=== PATIENT | female | born 1980 | race African-American/Black ===

== ENCOUNTER → 2016-11-11 | Outpatient (CLI) | payer OTHER, MEDICAID ==
[~2016-11-11] MED LIST: METR250 PO; ONDA4TAB7 PO; OXYC5 PO
[2016-11-11 12:12] LABS: AUTOMATED NEUTROPHIL # 2.5 TH/MM3 (1.8-7.7); BASOPHIL % 0.6 % (0.0-2.0); EOSINOPHIL % 0.2 % (0.0-4.0); HEMATOCRIT 35.3 % (35.0-46.0); HEMO FLAGS DIFF FINAL; LYMPH % 38.8 % (9.0-44.0); LYMPHOCYTE # 1.8 TH/MM3 (1.0-4.8); MEAN CELL VOLUME 88.6 FL (80.0-100.0); MEAN CORPUSCULAR HEMOGLOBIN 30.4 PG (27.0-34.0); MEAN CORPUSCULAR HGB CONC 34.3 % (32.0-36.0); NEUT % 52.4 % (16.0-70.0); PLATELET COUNT 160 TH/MM3 (150-450); RED BLOOD COUNT 3.99 MIL/MM3 (4.00-5.30); RED CELL DISTRIBUTION WIDTH 14.2 % (11.6-17.2); WHITE BLOOD COUNT 4.7 TH/MM3 (4.0-11.0)
[2016-11-11 12:46] LABS: ALKALINE PHOSPHATASE 86 U/L (45-117); ALT (GPT) 51 U/L (10-53); ANION GAP 8 MEQ/L (5-15); AST (GOT) 40 U/L (15-37); BLOOD UREA NITROGEN 17 MG/DL (7-18); CHLORIDE 102 MEQ/L (98-107); FERRITIN 16 NG/ML (8-252); GLOMERULAR FILTRATION RATE 76 ML/MIN (>89); GLUCOSE,FASTING 78 MG/DL (74-99); POTASSIUM 4.4 MEQ/L (3.5-5.1); SODIUM (NA) 137 MEQ/L (136-145); TOTAL BILIRUBIN ADULT 0.3 MG/DL (0.2-1.0)
== END ==
LOC: CLAB 11:29
PROVIDERS: ATTEND Internal Medicine Hematology & Oncology
DX: D50.9 Iron deficiency anemia, unspecified (principal); R53.81 Other malaise; R53.83 Other fatigue; Z98.84 Bariatric surgery status
CPT/HCPCS: 36415; 80053; 82728; 85025

== ENCOUNTER → 2016-11-19 | Outpatient (CLI) | payer OTHER, MEDICAID ==
[2016-11-19 10:23] LABS: FERRITIN 889 NG/ML (8-252); HDL CHOLESTEROL 80.3 MG/DL (40.0-60.0); LDL CHOLESTEROL 50 MG/DL (0-99); MAGNESIUM 2.2 MG/DL (1.5-2.5); TRANSFERRIN IRON PROFILE 299 MG/DL (200-360)
== END ==
LOC: CLAB 09:12
PROVIDERS: ATTEND Nurse Practitioner
DX: E78.89 Other lipoprotein metabolism disorders (principal); I27.2 Other secondary pulmonary hypertension; E55.9 Vitamin D deficiency, unspecified; N25.81 Secondary hyperparathyroidism of renal origin; Z98.84 Bariatric surgery status; Z86.39 Personal history of other endocrine, nutritional and metabolic disease
CPT/HCPCS: 36415; 80061; 82306; 82728; 83540; 83550; 83735; 83970; 84100; 84443; 84590

== ENCOUNTER → 2017-04-10 | Outpatient (CLI) | payer OTHER, MEDICAID ==
[2017-04-10 09:38] LABS: AUTOMATED NEUTROPHIL # 2.2 TH/MM3 (1.8-7.7); BASOPHIL % 0.5 % (0.0-2.0); EOSINOPHIL % 0.4 % (0.0-4.0); HEMATOCRIT 37.6 % (35.0-46.0); HEMO FLAGS DIFF FINAL; LYMPH % 39.9 % (9.0-44.0); LYMPHOCYTE # 1.7 TH/MM3 (1.0-4.8); MEAN CELL VOLUME 91.5 FL (80.0-100.0); MEAN CORPUSCULAR HEMOGLOBIN 30.2 PG (27.0-34.0); MONO % 7.1 % (0.0-8.0); NEUT % 52.1 % (16.0-70.0); PLATELET COUNT 140 TH/MM3 (150-450); RED BLOOD COUNT 4.11 MIL/MM3 (4.00-5.30); RED CELL DISTRIBUTION WIDTH 13.7 % (11.6-17.2); WHITE BLOOD COUNT 4.3 TH/MM3 (4.0-11.0)
[2017-04-10 09:55] LABS: MAGNESIUM 2.1 MG/DL (1.5-2.5)
[2017-04-10 10:23] LABS: FERRITIN 60 NG/ML (8-252); HDL CHOLESTEROL 75.8 MG/DL (40.0-60.0); LDL CHOLESTEROL 67 MG/DL (0-99); TRANSFERRIN IRON PROFILE 302 MG/DL (200-360)
[2017-04-14 23:51] LABS: THYROGLOB ABS LESS THAN 1 IU/mL (< OR = 1)
== END ==
LOC: CLAB 09:03
PROVIDERS: ATTEND Family Medicine
DX: Z00.00 Encounter for general adult medical examination without abnormal findings (principal); D64.9 Anemia, unspecified; E53.8 Deficiency of other specified B group vitamins; R63.5 Abnormal weight gain
CPT/HCPCS: 36415; 80061; 82306; 82607; 82728; 82746; 83540; 83550; 83735; 83970; 84100; 84443; 84590; 85025; 86376; 86800

== ENCOUNTER 2017-05-20 07:38 | Emergency (ER) | payer OTHER, MEDICAID ==
[~2017-05-20] VITALS: Ht 149.9 cm; Wt 82.5 kg
[2017-05-20 07:39] VITALS: BP 120/86; PULSE 78; RESP 16; TEMP 98.4; O2SAT 100
--- NOTE | 2017-05-20 07:59 | PD ---
HPI Chief Complaint: Allergic/Adverse Reaction Time Seen by Provider: 07:48 Travel History International Travel<30 days: No Contact w/Intl Traveler<30days: No Traveled to known affect area: No History of Present Illness HPI 37-year-old female with no significant past medical history presents for evaluation of bilateral periorbital swelling, swelling in the feet and hands. She reports that symptoms started at midnight 2 days ago. She took Benadryl 4 times yesterday and the swelling in her hands and feet feel improved however she continues to have bilateral periorbital edema. The area is painful, mild, aching, worse with palpation. She reports that she had some itching in her throat yesterday but that resolved. She denies any difficulty swallowing, shortness of breath, swelling of the lips or the tongue, rash. She does note that she ate seafood, potatoes, corn, aches, for dinner the evening that symptoms started however she has had seafood while times in the past with no adverse reaction. She denies any unusual foods, new medications or creams or lotions or detergents, new medications, recent travel. She has no other complaints at this time. PFSH Past Medical History Hx Anticoagulant Therapy: No Autoimmune Disease: No Anxiety: No Depression: No Cancer: No Cardiovascular Problems: Yes (" palpitations" ) Chemotherapy: No Cerebrovascular Accident: No Diabetes: No Diminished Hearing: No Endocrine: No Genitourinary: No Headaches: Yes Immune Disorder: No Musculoskeletal: No Neurologic: Yes (migraines as a teenager) Psychiatric: No Reproductive: No Respiratory: No Immunizations Current: No Migraines: Yes Radiation Therapy: No Ulcer: Yes ?: Not : 4 Para: 4 Tubal Ligation: Yes Past Surgical History Abdominal Surgery: Yes (GASTRIC BYPASS 03/2012) Section: Yes Cholecystectomy: Yes Gynecologic Surgery: Yes (C-SECTIONS) Hysterectomy: No Pacemaker: No Other Surgery: Yes (ulcer surg and "rule and wire") Social History Alcohol Use: Yes (socially) Tobacco Use: No Substance Use: No Allergies-Medications (Allergen,Severity, Reaction): Coded Allergies: No Known Allergies (Verified Adverse Reaction, Unknown, 05/20/17) Reported Meds & Prescriptions Reported Meds & Active Scripts Active Ranitidine (Ranitidine HCl) 150 Mg Tab 150 Mg PO DAILY Prednisone 20 Mg Tab 20 Mg PO BID 5 Days Reported Multiple Vitamin 1 Tab 1 Tab PO DAILY Review of Systems Except as stated in HPI: all other systems reviewed are Neg Physical Exam Narrative GENERAL: Well-developed well-nourished female in no acute distress SKIN: Warm and dry. No hives HEAD: Atraumatic. Normocephalic. EYES: Pupils equal and round. No scleral icterus. No injection or drainage. ENT: No nasal bleeding or discharge. Mucous membranes pink and moist. Bilateral periorbital edema is noted. There is no erythema or induration of the skin. There is no swelling of the lips, tongue, uvula. Voice is not hoarse or muffled. No stridor or drooling. NECK: Trachea midline. No JVD. CARDIOVASCULAR: Regular rate and rhythm. No murmur appreciated. RESPIRATORY: No accessory muscle use. Clear to auscultation. Breath sounds equal bilaterally. GASTROINTESTINAL: Abdomen soft, non-tender, nondistended. Hepatic and splenic margins not palpable. MUSCULOSKELETAL: No obvious deformities. No clubbing. No cyanosis. No edema. NEUROLOGICAL: Awake and alert. No obvious cranial nerve deficits. Motor grossly within normal limits. Normal speech. PSYCHIATRIC: Appropriate mood and affect; insight and judgment normal. Data Data Last Documented VS Vital Signs Date Time Temp Pulse Resp B/P (MAP) Pulse Ox O2 Delivery O2 Flow Rate FiO2 05/20/17 08:32 71 19 132/87 (102) 100 Room Air 05/20/17 07:39 98.4 Orders Orders Basic Metabolic Panel (Bmp) (05/20/17 07:55) Complete Blood Count With Diff (05/20/17 07:55) Ecg Monitoring (05/20/17 07:55) Iv Access Insert/Monitor (05/20/17 07:55) Oximetry (05/20/17 07:55) Diphenhydramine Inj (Benadryl Inj) (05/20/17 08:00) Methylprednisolone So Succ Inj (Solumedr (05/20/17 08:00) Famotidine Inj (Pepcid Inj) (05/20/17 08:00) Urinalysis - C+S If Indicated (05/20/17 07:55) Ed Urine Pregnancytest Poc (05/20/17 07:55) Ed Discharge Order (05/20/17 09:10) Labs Laboratory Tests Test 05/20/17 08:20 White Blood Count 3.4 TH/MM3 Red Blood Count 4.29 MIL/MM3 Hemoglobin 13.3 GM/DL Hematocrit 39.7 % Mean Corpuscular Volume 92.4 FL Mean Corpuscular Hemoglobin 31.0 PG Mean Corpuscular Hemoglobin Concent 33.5 % Red Cell Distribution Width 14.4 % Platelet Count 167 TH/MM3 Mean Platelet Volume 10.7 FL Neutrophils (%) (Auto) 44.3 % Lymphocytes (%) (Auto) 46.7 % Monocytes (%) (Auto) 6.7 % Eosinophils (%) (Auto) 1.6 % Basophils (%) (Auto) 0.7 % Neutrophils # (Auto) 1.5 TH/MM3 Lymphocytes # (Auto) 1.6 TH/MM3 Monocytes # (Auto) 0.2 TH/MM3 Eosinophils # (Auto) 0.1 TH/MM3 Basophils # (Auto) 0.0 TH/MM3 CBC Comment DIFF FINAL Differential Comment Urine Color YELLOW Urine Turbidity HAZY Urine pH 6.5 Urine Specific [place] 1.028 Urine Protein TRACE mg/dL Urine Glucose (UA) NEG mg/dL Urine Ketones NEG mg/dL Urine Occult Blood NEG Urine Nitrite NEG Urine Bilirubin NEG Urine Urobilinogen 2.0 MG/DL Urine Leukocyte Esterase NEG Urine RBC LESS THAN 1 /hpf Urine WBC 2 /hpf Urine Squamous Epithelial Cells 4 /hpf Urine Mucus FEW /lpf Microscopic Urinalysis Comment CULT NOT INDICATED Blood Urea Nitrogen 11 MG/DL Creatinine 0.80 MG/DL Random Glucose 77 MG/DL Calcium Level 7.9 MG/DL Sodium Level 139 MEQ/L Potassium Level 4.6 MEQ/L Chloride Level 106 MEQ/L Carbon Dioxide Level 26.8 MEQ/L Anion Gap 6 MEQ/L Estimat Glomerular Filtration Rate 99 ML/MIN [facility] Medical Decision Making Medical Screen Exam Complete: Yes Emergency Medical Condition: Yes Medical Record Reviewed: Yes Differential Diagnosis Angioedema, acute allergic reaction, renal failure, nephrotic syndrome, preeclampsia Narrative Course 37-year-old female who developed bilateral periorbital edema as well as swelling in the hands and feet at midnight 2 days ago, several hours after eating seafood. She has had seafood multiple times in the past with no adverse reaction. She took Benadryl yesterday and the swelling in her hands and feet of resolved but she continues have periorbital edema. Plans for urinalysis to evaluate for any proteinuria, we will assess her renal function. Most likely the patient is having an allergic reaction and this will be treated with H1/H2 antihistamines and IV Solu-Medrol. Upon recheck the patient feels improved. Her lab work has been reviewed. The patient will be discharged with a 5 day course of prednisone and ranitidine. She is encouraged to continue using Benadryl. She understands to return for any new or worsening symptoms. She is stable for discharge. Diagnosis Primary Impression: Angioedema Qualified Codes: T78.3XXA - Angioneurotic edema, initial encounter Additional Instructions: Medication as prescribed. Continue Benadryl every 6 hours per dosing instructions on the bottle. Follow-up with primary care physician and return for any acutely new or worsening symptoms. Med/Other Pt SpecificInfo: Prescription(s) given Scripts Ranitidine (Ranitidine) 150 Mg Tab 150 MG PO DAILY for Allergic Reaction, #5 TAB 0 Refills Prov: Mohsen Sheffield MD 05/20/17 Prednisone (Prednisone) 20 Mg Tab 20 MG PO BID for 5 Days, #10 TAB 0 Refills Prov: Mohsen Sheffield MD 05/20/17 Disposition: 01 DISCHARGE HOME Condition: Stable Kulwant Mcclendon May 20, 2017 07:59
[2017-05-20] MEDS ORDERED: MULTTAB67 PO (08:00)
[2017-05-20] MEDS ORDERED: methylPREDNISolone SOD SUCC 125 MG/2 ML VIAL IV PUSH ONE (08:00)
[2017-05-20] MEDS ORDERED: diphenhydrAMINE HCL 50 MG/ML VIAL IVP ONE (08:00)
[2017-05-20] MEDS ORDERED: FAMOTIDINE 20 MG/2 ML VIAL IV PUSH ONE (08:00)
[2017-05-20 08:32] VITALS: BP 132/87; PULSE 71; RESP 19; O2SAT 100
[2017-05-20 08:36] LABS: AUTOMATED NEUTROPHIL # 1.5 TH/MM3 (1.8-7.7); BASOPHIL % 0.7 % (0.0-2.0); EOSINOPHIL # 0.1 TH/MM3 (0-0.4); EOSINOPHIL % 1.6 % (0.0-4.0); HEMATOCRIT 39.7 % (35.0-46.0); HEMO FLAGS DIFF FINAL; LYMPH % 46.7 % (9.0-44.0); LYMPHOCYTE # 1.6 TH/MM3 (1.0-4.8); MEAN CELL VOLUME 92.4 FL (80.0-100.0); MEAN CORPUSCULAR HGB CONC 33.5 % (32.0-36.0); MONO % 6.7 % (0.0-8.0); NEUT % 44.3 % (16.0-70.0); PLATELET COUNT 167 TH/MM3 (150-450); RED BLOOD COUNT 4.29 MIL/MM3 (4.00-5.30); RED CELL DISTRIBUTION WIDTH 14.4 % (11.6-17.2); WHITE BLOOD COUNT 3.4 TH/MM3 (4.0-11.0)
[2017-05-20 08:38] LABS: BLOOD, URINE NEG (NEG); COMMENT (UR) CULT NOT INDICATED; CULTURE IF INDICATED CULT NOT INDICATED; GLUCOSE,URINE NEG (NEG); KETONE, URINE NEG (NEG); MUCUS URINE FEW /lpf (OCC); NITRITE,URINE NEG (NEG); PH, URINE 6.5 (5.0-8.5); SQUAMOUS EPITHELIAL CELL URINE 4 /hpf (0-5); URINE COLOR YELLOW (YELLW/STRAW)
[2017-05-20] MEDS ORDERED: RANI150T PO (08:48)
[2017-05-20] MEDS ORDERED: PRED20 PO (08:48)
[2017-05-20 09:02] LABS: BICARBONATE 26.8 MEQ/L (21.0-32.0); POTASSIUM 4.6 MEQ/L (3.5-5.1)
== END 2017-05-20 09:27 | disposition home or self-care (01) ==
LOC: NEPD 07:38
DX: T78.3XXA Angioneurotic edema, initial encounter (principal); M79.89 Other specified soft tissue disorders; L29.9 Pruritus, unspecified; Z79.899 Other long term (current) drug therapy
CPT/HCPCS: 80048; 81001; 84703; 85025; 96374; 96375; 99284; J1200; J2930

== ENCOUNTER 2017-06-18 11:05 | Emergency (ER) | payer OTHER, MEDICAID ==
[~2017-06-18] VITALS: Ht 149.9 cm; Wt 85.0 kg
[~2017-06-18 11:05] MED LIST changes: -METR250 PO; +MULTTAB67 PO; -ONDA4TAB7 PO; -OXYC5 PO; +PRED20 PO; +RANI150T PO
[2017-06-18 11:07] VITALS: BP 144/91; PULSE 86; RESP 14; TEMP 98.5; O2SAT 100
[2017-06-18] MEDS ORDERED: PRED20 PO (11:43)
--- NOTE | 2017-06-18 11:53 | PD ---
HPI . Bilateral eyelid swelling Chief Complaint: Facial Pain or Swelling Time Seen by Provider: 11:17 Travel History International Travel<30 days: No Contact w/Intl Traveler<30days: No Traveled to known affect area: No History of Present Illness HPI 37 year old female presents to the emergency department for evaluation of bilateral eyelid swelling that started this morning. The right eyelid is slightly more swollen than the left. Patient states earlier this month she had an episode where she had eaten seafood and her throat closed up and her eyelid swelled. Patient states she was treated for that allergic reaction and has not had a problem since. Patient states she did not eat seafood yesterday or today. Patient denies any throat swelling, difficulty breathing, chest pain, shortness of breath, cough, fever, chills, malaise. Patient states it is only her eyelids are swollen this time. Patient has a blurred vision or visual disturbances. PFSH Past Medical History Hx Anticoagulant Therapy: No Anemia: Yes Autoimmune Disease: No Blood Disorders: Yes (anemia - receives blood at oncology center occoasionally ) Anxiety: No Depression: No Cancer: No Cardiovascular Problems: Yes (" palpitations" ) Chemotherapy: No Cerebrovascular Accident: No Diabetes: No Diminished Hearing: No Endocrine: No Gastrointestinal Disorders: Yes (hx bleeding ulcers, zulifqar to do endo at of month) Genitourinary: No Headaches: Yes Immune Disorder: No Implanted Vascular Access Dvce: No Musculoskeletal: No Neurologic: Yes (migraines as a teenager) Psychiatric: No Reproductive: No Respiratory: No Immunizations Current: No Migraines: Yes Radiation Therapy: No Ulcer: Yes ?: Not : 4 Para: 4 Tubal Ligation: Yes Past Surgical History Abdominal Surgery: Yes (GASTRIC BYPASS 03/2012) Section: Yes Cholecystectomy: Yes Gynecologic Surgery: Yes (C-SECTIONS) Hysterectomy: No Pacemaker: No Other Surgery: Yes (ulcer surg and "rule and wire") Social History Alcohol Use: Yes (socially) Tobacco Use: No Substance Use: No Allergies-Medications (Allergen,Severity, Reaction): Coded Allergies: No Known Allergies (Verified Adverse Reaction, Unknown, 05/20/17) Reported Meds & Prescriptions Reported Meds & Active Scripts Active Prednisone 20 Mg Tab 20 Mg PO DAILY 3 Days Ranitidine (Ranitidine HCl) 150 Mg Tab 150 Mg PO DAILY Prednisone 20 Mg Tab 20 Mg PO BID 5 Days Reported Multiple Vitamin 1 Tab 1 Tab PO DAILY Review of Systems Except as stated in HPI: all other systems reviewed are Neg Physical Exam Narrative GENERAL: Well-nourished, well-developed 37-year-old female patient in no acute distress. Nontoxic appearing. SKIN: Focused skin assessment warm/dry. HEAD: Normocephalic. Atraumatic. EYES: Mild to Moderate edema noted to bilateral eyelids with the right slightly more swollen than the left. No injection, purulent drainage or signs of infection noted. No scleral icterus. NECK: Supple, trachea midline. No JVD or lymphadenopathy. CARDIOVASCULAR: Regular rate and rhythm without murmurs, gallops, or rubs. RESPIRATORY: Breath sounds equal bilaterally. No accessory muscle use. GASTROINTESTINAL: Abdomen soft, non-tender, nondistended. MUSCULOSKELETAL: No cyanosis, or edema. Data Data Last Documented VS Vital Signs Date Time Temp Pulse Resp B/P (MAP) Pulse Ox O2 Delivery O2 Flow Rate FiO2 06/18/17 12:05 06/18/17 11:07 98.5 86 14 100 Orders Orders Ed Discharge Order (06/18/17 11:55) MDM Medical Decision Making Medical Screen Exam Complete: Yes Emergency Medical Condition: Yes Differential Diagnosis Different diagnosis including but not limited to allergic reaction, stye, edema , chalazion Narrative Course 37-year-old female presents to emergency room for evaluation of eyelid swelling. Patient advised to use warm moist compresses to help reduce the swelling and given a prescription for prednisone. Patient discharged home with instructions to return to the emergency Department with any worsening condition , trouble breathing, chest pain or signs or symptoms of allergic reaction. Patient understands reasons to return to the emergency department. Patient stable for discharge at this time and discharged home. Diagnosis Primary Impression: Swelling of eyelid Qualified Codes: H02.849 - Edema of unspecified eye, unspecified eyelid Referrals: Primary Care Physician Additional Instructions: Please return to emergency department if your symptoms return or worsen. Follow up with your primary care provider. Take medications as prescribed. Use warm moist compresses to her eyelids to help reduce swelling. Med/Other Pt SpecificInfo: Prescription(s) given Scripts Prednisone (Prednisone) 20 Mg Tab 20 MG PO DAILY for 3 Days, #3 TAB 0 Refills Prov: Holley Sierra 06/18/17 Disposition: 01 DISCHARGE HOME Condition: Stable MarielaHolley Adeline SYED Jun 18, 2017 11:53
== END 2017-06-18 12:05 | disposition home or self-care (01) ==
LOC: NEPK 11:05
DX: H02.849 Edema of unspecified eye, unspecified eyelid (principal); Z86.2 Personal history of diseases of the blood and blood-forming organs and certain disorders involving the immune mechanism; Z86.79 Personal history of other diseases of the circulatory system; Z87.19 Personal history of other diseases of the digestive system; Z86.69 Personal history of other diseases of the nervous system and sense organs
CPT/HCPCS: 99283

== ENCOUNTER 2017-07-22 08:13 | Emergency (ER) | payer OTHER, MEDICAID ==
[~2017-07-22] VITALS: Ht 152.4 cm; Wt 88.5 kg
[2017-07-22 08:15] VITALS: BP 124/94; PULSE 124; RESP 20; TEMP 98.1; O2SAT 100
[2017-07-22] MEDS ORDERED: SODIUM CHLOR 0.9% 1000 ML INJ 1,000 ML IV SCH (08:30)
[2017-07-22] MEDS ORDERED: ONDANSETRON HCL 4 MG/2 ML VIAL IVP ONE (08:30)
[2017-07-22] MEDS ORDERED: SODIUM CHLORIDE 0.9% FLUSH 10 ML FLUSH IV FLUSH PRN (08:30)
[2017-07-22 08:37] VITALS: RESP 16; O2SAT 100
[2017-07-22 09:15] LABS: AUTOMATED NEUTROPHIL # 1.2 TH/MM3 (1.8-7.7); BASOPHIL % 0.7 % (0.0-2.0); EOSINOPHIL % 0.8 % (0.0-4.0); HEMATOCRIT 38.9 % (35.0-46.0); HEMOGLOBIN 13.3 GM/DL (11.6-15.3); LYMPH % 48.1 % (9.0-44.0); LYMPHOCYTE # 1.5 TH/MM3 (1.0-4.8); MEAN CELL VOLUME 91.8 FL (80.0-100.0); MEAN CORPUSCULAR HEMOGLOBIN 31.3 PG (27.0-34.0); MEAN CORPUSCULAR HGB CONC 34.2 % (32.0-36.0); MONO % 10.7 % (0.0-8.0); MONOCYTE # 0.3 TH/MM3 (0-0.9); NEUT % 39.7 % (16.0-70.0); PLATELET COUNT 172 TH/MM3 (150-450); RED BLOOD COUNT 4.24 MIL/MM3 (4.00-5.30); RED CELL DISTRIBUTION WIDTH 14.1 % (11.6-17.2)
[2017-07-22 09:27] LABS: ALBUMIN 3.6 GM/DL (3.4-5.0); AST (GOT) 379 U/L (15-37); BICARBONATE 28.4 MEQ/L (21.0-32.0); BLOOD UREA NITROGEN 12 MG/DL (7-18); CALCIUM 8.4 MG/DL (8.5-10.1); CHLORIDE 103 MEQ/L (98-107); CREATININE 0.81 MG/DL (0.50-1.00); GLOMERULAR FILTRATION RATE 97 ML/MIN (>89); GLUCOSE,RANDOM 90 MG/DL (74-106); LIPASE 286 U/L (73-393); SODIUM (NA) 138 MEQ/L (136-145)
[2017-07-22 09:31] LABS: ALKALINE PHOSPHATASE 179 U/L (45-117); ALT (GPT) 300 U/L (10-53); TOTAL BILIRUBIN ADULT 0.4 MG/DL (0.2-1.0); TOTAL PROTEIN 7.5 GM/DL (6.4-8.2)
[2017-07-22 09:36] LABS: BILIRUBIN, URINE NEG (NEG); BLOOD, URINE NEG (NEG); GLUCOSE,URINE NEG (NEG); KETONE, URINE NEG (NEG); MUCUS URINE FEW /lpf (OCC); NITRITE,URINE NEG (NEG); SQUAMOUS EPITHELIAL CELL URINE 2 /hpf (0-5); URINE COLOR YELLOW (YELLW/STRAW); URINE LEUKOCYTE ESTERASE NEG (NEG)
--- NOTE | 2017-07-22 10:26 | PD ---
HPI Chief Complaint: GI Complaint Time Seen by Provider: 08:22 Travel History International Travel<30 days: No Contact w/Intl Traveler<30days: No Traveled to known affect area: No History of Present Illness HPI This is a 37-year-old female who presents to the emergency department with vomiting that started last night, constant, moderate severity associated with epigastric sharp abdominal pain which is nonradiating. She has a history of a Amparo-en-Y which was performed 6 years ago. She denies any diarrhea or constipation. She's not had any fevers or chills. She has no known sick contacts. She doesn't think she could be and her last period was 2 weeks ago. PFSH Past Medical History Hx Anticoagulant Therapy: No Anemia: Yes Autoimmune Disease: No Blood Disorders: Yes (anemia - receives blood at oncology center occoasionally ) Anxiety: No Depression: No Cancer: No Cardiovascular Problems: Yes (" palpitations" ) Chemotherapy: No Cerebrovascular Accident: No Diabetes: No Diminished Hearing: No Endocrine: No Gastrointestinal Disorders: Yes (hx bleeding ulcers, zulifqar to do endo at of month) Genitourinary: No Headaches: Yes Immune Disorder: No Implanted Vascular Access Dvce: No Musculoskeletal: No Neurologic: Yes (migraines as a teenager) Psychiatric: No Reproductive: No Respiratory: No Immunizations Current: No Migraines: Yes Radiation Therapy: No Ulcer: Yes ?: Unknown : 4 Para: 4 Tubal Ligation: Yes Past Surgical History Abdominal Surgery: Yes (GASTRIC BYPASS 03/2012) Section: Yes Cholecystectomy: Yes Gynecologic Surgery: Yes (C-SECTIONS) Hysterectomy: No Pacemaker: No Other Surgery: Yes (ulcer surg and "rule and wire") Social History Alcohol Use: No Tobacco Use: No Substance Use: No Allergies-Medications (Allergen,Severity, Reaction): Coded Allergies: No Known Allergies (Verified Adverse Reaction, Unknown, 07/22/17) Reported Meds & Prescriptions Reported Meds & Active Scripts Active Prednisone 20 Mg Tab 20 Mg PO DAILY 3 Days Ranitidine (Ranitidine HCl) 150 Mg Tab 150 Mg PO DAILY Prednisone 20 Mg Tab 20 Mg PO BID 5 Days Reported Multiple Vitamin 1 Tab 1 Tab PO DAILY Review of Systems Except as stated in HPI: all other systems reviewed are Neg Physical Exam Narrative GENERAL:Well appearing, no acute distress SKIN: Focused skin assessment warm and dry. HEAD: Atraumatic. Normocephalic. EYES: Pupils equal and round. No injection or drainage. ENT: Moist mucous membranes NECK: Trachea midline. CARDIOVASCULAR: Regular rate and rhythm. No murmur appreciated. RESPIRATORY: Clear to auscultation. Breath sounds equal bilaterally. GASTROINTESTINAL: Abdomen soft, tender to palpation in the right upper quadrant and epigastrium with no rebound or guarding. MUSCULOSKELETAL: No obvious deformities. NEUROLOGICAL: Awake and alert. No obvious cranial nerve deficits. Moving all extremities. PSYCHIATRIC: Appropriate mood and affect; insight and judgment normal. Data Data Last Documented VS Vital Signs Date Time Temp Pulse Resp B/P (MAP) Pulse Ox O2 Delivery O2 Flow Rate FiO2 07/22/17 08:37 16 100 Room Air 07/22/17 08:15 98.1 124 Orders Orders Complete Blood Count With Diff (07/22/17 08:30) Comprehensive Metabolic Panel (07/22/17 08:30) Lipase (07/22/17 08:30) Ct Abd/Pel W Iv Contrast(Rout) (07/22/17 08:30) Iv Access Insert/Monitor (07/22/17 08:30) Ecg Monitoring (07/22/17 08:30) Oximetry (07/22/17 08:30) Ondansetron Inj (Zofran Inj) (07/22/17 08:30) Sodium Chlor 0.9% 1000 Ml Inj (Ns 1000 M (07/22/17 08:30) Sodium Chloride 0.9% Flush (Ns Flush) (07/22/17 08:30) Ed Urine Pregnancytest Poc (07/22/17 08:30) Urinalysis - C+S If Indicated (07/22/17 08:30) Iohexol 350 Inj (Omnipaque 350 Inj) (07/22/17 10:27) Labs Laboratory Tests Test 07/22/17 08:30 White Blood Count 3.0 TH/MM3 Red Blood Count 4.24 MIL/MM3 Hemoglobin 13.3 GM/DL Hematocrit 38.9 % Mean Corpuscular Volume 91.8 FL Mean Corpuscular Hemoglobin 31.3 PG Mean Corpuscular Hemoglobin Concent 34.2 % Red Cell Distribution Width 14.1 % Platelet Count 172 TH/MM3 Mean Platelet Volume 10.0 FL Neutrophils (%) (Auto) 39.7 % Lymphocytes (%) (Auto) 48.1 % Monocytes (%) (Auto) 10.7 % Eosinophils (%) (Auto) 0.8 % Basophils (%) (Auto) 0.7 % Neutrophils # (Auto) 1.2 TH/MM3 Lymphocytes # (Auto) 1.5 TH/MM3 Monocytes # (Auto) 0.3 TH/MM3 Eosinophils # (Auto) 0.0 TH/MM3 Basophils # (Auto) 0.0 TH/MM3 CBC Comment DIFF FINAL Differential Comment Urine Color YELLOW Urine Turbidity CLEAR Urine pH 7.0 Urine Specific [place] 1.028 Urine Protein TRACE mg/dL Urine Glucose (UA) NEG mg/dL Urine Ketones NEG mg/dL Urine Occult Blood NEG Urine Nitrite NEG Urine Bilirubin NEG Urine Urobilinogen 2.0 MG/DL Urine Leukocyte Esterase NEG Urine RBC LESS THAN 1 /hpf Urine WBC 1 /hpf Urine Squamous Epithelial Cells 2 /hpf Urine Mucus FEW /lpf Microscopic Urinalysis Comment CULT NOT INDICATED Blood Urea Nitrogen 12 MG/DL Creatinine 0.81 MG/DL Random Glucose 90 MG/DL Total Protein 7.5 GM/DL Albumin 3.6 GM/DL Calcium Level 8.4 MG/DL Alkaline Phosphatase 179 U/L Aspartate Amino Transf (AST/SGOT) 379 U/L Alanine Aminotransferase (ALT/SGPT) 300 U/L Total Bilirubin 0.4 MG/DL Sodium Level 138 MEQ/L Potassium Level 4.1 MEQ/L Chloride Level 103 MEQ/L Carbon Dioxide Level 28.4 MEQ/L Anion Gap 7 MEQ/L Estimat Glomerular Filtration Rate 97 ML/MIN Lipase 286 U/L MDM Medical Decision Making Medical Screen Exam Complete: Yes Emergency Medical Condition: Yes Interpretation(s) Afebrile, tachycardic, normotensive Mild leukopenia Some lymphocyte and monocyte predominance Transaminitis Alkaline phosphatase slightly elevated Lipase is normal Urinalysis is negative for infection Differential Diagnosis Pancreatitis, gastritis, GERD, peptic ulcer disease, gastroenteritis Narrative Course This is a 37-year-old female who presents to the emergency department with vomiting that started overnight associated with epigastric discomfort. She has a history of a Amparo-en-Y and a cholecystectomy. She was placed on a monitor and an IV was established. She was given a liter of IV fluid and Zofran. Labs were obtained which demonstrate a mild leukocytosis with a slight lymphocytic and monocytic predominance suggestive of a possible viral syndrome. She also has a transaminitis. Of note, back in 2016 she came in with similar symptoms and had a transaminitis. She was hospitalized, and had an endoscopy as well as a hepatitis panel which was reassuring and the transaminitis resolved on its own. CT scan is reassuring. Patient feels much better after IV fluids and Zofran. I think she is appropriate for outpatient evaluation. This may reflect gastroenteritis or she may have some underlying biliary process but she's had a cholecystectomy and I don't think there is a surgical etiology of her symptoms at this time. I asked her to follow-up with both gastroenterology and Dr. Rodriguez. Patient will be discharged on Zofran. Diagnosis Primary Impression: Vomiting Qualified Codes: R11.2 - Nausea with vomiting, unspecified Additional Impression: Elevated LFTs Referrals: [facility] Patient Instructions: General Instructions Additional Instructions: If you develop severe or worsening abdominal pain, fever>100.4, persistent vomiting or inability to eat or drink return to the emergency department immediately. Your liver function tests are slightly elevated. Follow-up with a weather algorithm scientist and with Dr. Rodriguez in clinic. Med/Other Pt SpecificInfo: Prescription(s) given Scripts Ondansetron Odt (Zofran Odt) 4 Mg Tab 4 MG SL Q6HR Y for Nausea/Vomiting, #15 TAB 0 Refills Prov: Sophie Banks MD 07/22/17 Disposition: 01 DISCHARGE HOME Condition: Stable Sophie Banks MD Jul 22, 2017 10:26
[2017-07-22] MEDS ORDERED: IOHEXOL 350 MG/ML 10 ML VIAL (for RAD DIAG) IVCONTRAST ONE (10:27)
--- NOTE | 2017-07-22 10:33 | RADRPT ---
EXAM DATE/TIME: 07/22/2017 10:17 [facility] COMPARISON: CT ABDOMEN & PELVIS W CONTRAST, February 27, 2016, 14:08. INDICATIONS : Abdominal pain, vomiting. IV CONTRAST: 94 cc Omnipaque 350 (iohexol) IV ORAL CONTRAST: No oral contrast ingested. RADIATION DOSE: 16.81 CTDIvol (mGy) MEDICAL HISTORY : None SURGICAL HISTORY : Gastric bypass. section.Tubal ligation. ENCOUNTER: Initial ACUITY: 1 day PAIN SCALE: 2/10 LOCATION: Bilateral abdomen TECHNIQUE: Volumetric scanning of the abdomen and pelvis was performed. Using automated exposure control and ad justment of the mA and/or kV according to patient size, radiation dose was kept as low as reasonably achievable to obtain optimal diagnostic quality images. DICOM format image data is available electro nically for review and comparison. FINDINGS: Lung base is are clear. The liver is free of focal defects. The spleen, pancreas and adrenals unremarkable There is no ascites or adenopathy Evidence for previous surgery is seen in the left mid abdomen In the pelvis, uterus is prominent with probable fibroids. . There is no adnexal mass. The abdominal barfield intact There is no free fluid or free air. CONCLUSION: Evidence for previous surgery, otherwise negative.. Kevin Tucker MD FACR on July 22, 2017 at 10:29 Board Certified Radiologist. This report was verified electronically.
[2017-07-22] MEDS ORDERED: ZOFR4TAB3 SL (10:57)
[2017-07-22 11:07] VITALS: BP 132/75
== END 2017-07-22 11:14 | disposition home or self-care (01) ==
LOC: NEPE 08:13
DX: R11.2 Nausea with vomiting, unspecified (principal); R79.89 Other specified abnormal findings of blood chemistry; R10.13 Epigastric pain; D64.9 Anemia, unspecified
CPT/HCPCS: 74177; 80053; 81001; 83690; 84703; 85025; 96361; 96374; 99284; J2405; J7030; Q9967

== ENCOUNTER 2017-07-27 15:15 | Emergency (ER) | payer OTHER, MEDICAID ==
[~2017-07-27 15:15] MED LIST changes: +ZOFR4TAB3 SL
[2017-07-27 15:16] VITALS: BP 157/87; PULSE 101; RESP 16; TEMP 98.9; O2SAT 96
[2017-07-27 15:56] VITALS: PULSE 90; RESP 18; O2SAT 100
[2017-07-27] MEDS ORDERED: RANITIDINE HCL SYRUP 150 MG/10 ML UDC PO ONE (16:45)
[2017-07-27] MEDS ORDERED: EPIP0.3I IM (17:23)
[2017-07-27] MEDS ORDERED: PRED20 PO (17:24)
--- NOTE | 2017-07-27 17:33 | PD ---
HPI Chief Complaint: Allergic/Adverse Reaction Time Seen by Provider: 16:30 Travel History International Travel<30 days: No Contact w/Intl Traveler<30days: No Traveled to known affect area: No History of Present Illness HPI 37-year-old female presents emergency department for evaluation after having allergic reaction today. Patient has been having intermittent reactions for a couple months now. She has tried to positively identify a trigger but has been unsuccessful so far. Initially she thought she was allergic to seafood but she continued to have allergic reactions despite not coming in contact with seafood. Patient is an employee here on [employer] was at work today when the reaction of lip and eyelid swelling occurred. Patient did not have any shortness of breath or difficulty breathing. Patient took Benadryl and reported to the emergency department. She denies any chest pain, nausea, vomiting or diarrhea. Patient describes this allergic reaction is burning around her mouth without swelling. Patient states the only thing that she can relate this reaction to is the Tylenol she took last night because she has not eaten or drank anything today. Patient is being followed by her primary care Jacinto Bautista for this and has allergy testing scheduled for . Patient just completed course of 7 day prescription for prednisone on Thursday. Patient says the prednisone facility was been helping her through these allergic reactions. PFSH Past Medical History Hx Anticoagulant Therapy: No Anemia: Yes Autoimmune Disease: No Blood Disorders: Yes (anemia - receives blood at oncology center occoasionally ) Anxiety: No Depression: No Cancer: No Cardiovascular Problems: Yes (" palpitations" ) Chemotherapy: No Cerebrovascular Accident: No Diabetes: No Diminished Hearing: No Endocrine: No Gastrointestinal Disorders: Yes (hx bleeding ulcers, zulifqar to do endo at of month) Genitourinary: No Headaches: Yes Immune Disorder: No Implanted Vascular Access Dvce: No Musculoskeletal: No Neurologic: Yes (migraines as a teenager) Psychiatric: No Reproductive: No Respiratory: No Immunizations Current: No Migraines: Yes Radiation Therapy: No Ulcer: Yes ?: Not : 4 Para: 4 Tubal Ligation: Yes Past Surgical History Abdominal Surgery: Yes (GASTRIC BYPASS 03/2012) Section: Yes Cholecystectomy: Yes Gynecologic Surgery: Yes (C-SECTIONS) Hysterectomy: No (BTL) Pacemaker: No Other Surgery: Yes (ulcer surg and "rule and wire") Social History Alcohol Use: No Tobacco Use: No Substance Use: No Allergies-Medications (Allergen,Severity, Reaction): Coded Allergies: No Known Allergies (Verified Adverse Reaction, Unknown, 07/22/17) Reported Meds & Prescriptions Reported Meds & Active Scripts Active Zofran Odt (Ondansetron Odt) 4 Mg Tab 4 Mg SL Q6HR PRN Prednisone 20 Mg Tab 20 Mg PO DAILY 3 Days Ranitidine (Ranitidine HCl) 150 Mg Tab 150 Mg PO DAILY Prednisone 20 Mg Tab 20 Mg PO BID 5 Days Reported Multiple Vitamin 1 Tab 1 Tab PO DAILY Review of Systems Except as stated in HPI: all other systems reviewed are Neg Physical Exam Narrative GENERAL: Well-nourished, well-developed 37-year-old female patient in no acute respiration distress. SKIN: Focused skin assessment warm/dry. HEAD: Normocephalic. Atraumatic EYES: Bilateral mild eyelid edema. No scleral icterus. No injection or drainage. ENT: Mild lip swelling of the upper and lower lips. Mucosa pink and moist. No erythema or exudates. No uvular edema. No uvular, palatal, or tonsillar deviation. Airway patent. Nasal turbinates appear normal without nasal blood, purulent drainage or septal hematoma. THROAT: No pharyngeal injection, exudates, or tonsillar hypertrophy. Airway is patent. NECK: Supple, trachea midline. No JVD or lymphadenopathy. CARDIOVASCULAR: Regular rate and rhythm without murmurs, gallops, or rubs. RESPIRATORY: Breath sounds equal bilaterally. No accessory muscle use. GASTROINTESTINAL: Abdomen soft, non-tender, nondistended. MUSCULOSKELETAL: No cyanosis, or edema. BACK: Nontender without obvious deformity. No CVA tenderness. Data Data Last Documented VS Vital Signs Date Time Temp Pulse Resp B/P (MAP) Pulse Ox O2 Delivery O2 Flow Rate FiO2 07/27/17 15:56 90 18 100 Room Air 07/27/17 15:16 98.9 Orders Orders Ranitidine Liq (Zantac Liq) (07/27/17 16:45) MDM Medical Decision Making Medical Screen Exam Complete: Yes Emergency Medical Condition: Yes Differential Diagnosis Differential diagnoses include but not limited to allergic reaction, angioedema , anaphylaxis Narrative Course Vital signs were reviewed and physical assessment performed. Patient has no acute respiratory distress. Zantac by mouth given, Solu-Medrol IM given and patient discharged home with a prescription for prednisone to carry her through until when she has allergy testing with her primary care. She given a prescription for EpiPen to use in case symptoms progress and anaphylaxis. At this time the patient's allergic reaction of eyelid and lip swelling has resolved and patient states she is feeling much better. She is going to avoid Tylenol, the medication she feels like cause this reaction this time. Patient discharged home at this time. Diagnosis Primary Impression: Allergic reaction Qualified Codes: T78.40XA - Allergy, unspecified, initial encounter Referrals: Primary Care Physician Patient Instructions: General Allergic Reaction (ED), General Instructions Additional Instructions: Please return to emergency department if your symptoms return or worsen. Follow up with your primary care provider. Take medications as prescribed. Avoid any suspected allergic reaction triggers. Med/Other Pt SpecificInfo: Prescription(s) given Scripts Prednisone (Prednisone) 20 Mg Tab 40 MG PO DAILY for 3 Days, #6 TAB 0 Refills Take 40 mg (2 tablets) daily for 3 days Prov: Holley Sierra 07/27/17 Epinephrine Inj (Epipen 2-Rian Inj) 0.3 Mg/0.3 Ml Pfpen 0.3 MG IM ONCE Y for ALLERGIC REACTION, #1 PACK 0 Refills Prov: Holley Sierra 07/27/17 Disposition: 01 DISCHARGE HOME Condition: Stable Holley Sierra Jul 27, 2017 17:33
[2017-07-27] MEDS ORDERED: methylPREDNISolone SOD SUCC 125 MG/2 ML VIAL IM ONE (17:45)
== END 2017-07-27 18:02 | disposition home or self-care (01) ==
LOC: NEPD 15:15
DX: T78.40XA Allergy, unspecified, initial encounter (principal); R22.0 Localized swelling, mass and lump, head; X58.XXXA Exposure to other specified factors, initial encounter; D64.9 Anemia, unspecified; R00.2 Palpitations; K27.4 Chronic or unspecified peptic ulcer, site unspecified, with hemorrhage; R51 Headache; Z98.84 Bariatric surgery status; Z79.899 Other long term (current) drug therapy
CPT/HCPCS: 96372; 99284; J2930

== ENCOUNTER → 2017-07-31 | Outpatient (CLI) | payer OTHER, MEDICAID ==
[~2017-07-31] MED LIST changes: +EPIP0.3I IM
[2017-07-31 13:18] LABS: % SATURATION IRON PROFILE 12.6 % (20-50); IRON (FE) 49 MCG/DL (50-170); TOTAL IRON BINDING CAPACITY 388 MCG/DL (250-450)
[2017-07-31 13:27] LABS: FERRITIN 178 NG/ML (8-252)
[2017-07-31 13:56] LABS: HEPATITIS A AB IGM NEGATIVE (NEGATIVE); HEPATITIS B CORE AB IGM NEGATIVE (NEGATIVE); HEPATITIS B SURFACE ANTIGEN NEGATIVE (NEGATIVE); HEPATITIS C AB IgG NEGATIVE (NEGATIVE)
[2017-08-01 15:11] LABS: SMOOTH MUSCLE TOTAL AUTOABS Negative (Negative)
[2017-08-01 16:45] LABS: ALPHA-1-ANTITRYPSIN 95 mg/dL (100 - 190)
[2017-08-02 19:51] LABS: CERULOPLASMIN 30 mg/dL (18-53)
[2017-08-03 15:21] LABS: ANA SCREEN NEG (NEG)
[2017-08-04 03:50] LABS: ENDOMYSIAL AB SCREEN ND (NEGATIVE); ENDOMYSIAL AB TITER ND (<1:5)
[2017-08-05 03:49] LABS: MITOCHONDRIAL ABS LESS THAN 20.0 U (<=20.0)
== END ==
LOC: CLAB 12:06
DX: R74.8 Abnormal levels of other serum enzymes (principal)
CPT/HCPCS: 36415; 80074; 82103; 82390; 82728; 82784; 83516; 83520; 83540; 83550; 84443; 86038; 86255

== ENCOUNTER → 2017-08-07 | Outpatient (CLI) | payer OTHER, MEDICAID ==
[2017-08-07 13:29] LABS: ALBUMIN 3.6 GM/DL (3.4-5.0); ANION GAP 11 MEQ/L (5-15); BICARBONATE 26.2 MEQ/L (21.0-32.0); BLOOD UREA NITROGEN 12 MG/DL (7-18); CALCIUM 8.8 MG/DL (8.5-10.1); CHLORIDE 103 MEQ/L (98-107); CREATININE 0.75 MG/DL (0.50-1.00); GLOMERULAR FILTRATION RATE 106 ML/MIN (>89); GLUCOSE,FASTING 93 MG/DL (74-99); POTASSIUM 3.8 MEQ/L (3.5-5.1); SODIUM (NA) 140 MEQ/L (136-145)
[2017-08-07 13:30] LABS: ALT (GPT) 24 U/L (10-53); AST (GOT) 21 U/L (15-37)
[2017-08-07 13:32] LABS: ALKALINE PHOSPHATASE 73 U/L (45-117); TOTAL BILIRUBIN ADULT 0.5 MG/DL (0.2-1.0)
== END ==
LOC: CLAB 12:24
DX: E53.8 Deficiency of other specified B group vitamins (principal); K31.1 Adult hypertrophic pyloric stenosis; E55.9 Vitamin D deficiency, unspecified
CPT/HCPCS: 36415; 80053

== ENCOUNTER → 2017-08-12 | Day surgery (SDC) | payer OTHER, MEDICAID ==
[~2017-08-12] MED LIST changes: -EPIP0.3I IM; +LACTATED RINGER'S 1000 ML INJ 1,000 ML; -MULTTAB67 PO; -PRED20 PO; +PROPOFOL 500 MG/50 ML BTL IV; -RANI150T PO; -ZOFR4TAB3 SL
== END | disposition home or self-care (01) ==
LOC: ESDC 11:00
DX: R14.0 Abdominal distension (gaseous) (principal); R10.9 Unspecified abdominal pain; K25.9 Gastric ulcer, unspecified as acute or chronic, without hemorrhage or perforation; K22.9 Disease of esophagus, unspecified
CPT/HCPCS: 00731; 88305; 88305-59

== ENCOUNTER 2017-09-09 10:22 | Emergency (ER) | payer MEDICAID, OTHER ==
[~2017-09-09 10:22] MED LIST changes: +EPIP0.3I IM; -LACTATED RINGER'S 1000 ML INJ 1,000 ML; +MULTTAB67 PO; +PRED20 PO; -PROPOFOL 500 MG/50 ML BTL IV; +RANI150T PO; +ZOFR4TAB3 SL
[2017-09-09 10:25] VITALS: BP 142/74; PULSE 95; RESP 14; TEMP 98.5; O2SAT 100
[2017-09-09] MEDS ORDERED: PRED20 PO (10:51)
--- NOTE | 2017-09-09 10:56 | PD ---
HPI Chief Complaint: Allergic/Adverse Reaction Time Seen by Provider: 10:40 Travel History International Travel<30 days: No Contact w/Intl Traveler<30days: No Traveled to known affect area: No History of Present Illness HPI 37-year-old female presents for evaluation of bilateral lip swelling. Symptoms started early this morning. She reports an associated burning sensation in her lips which is worse with palpation. She took Benadryl this morning but symptoms persisted which prompted evaluation. She reports associated scratchy throat. She reports that she has had frequent angioedema type reactions and her face over the past several months. Typically they cause periorbital edema as well. She is not currently on any prescribed medications. Denies any medications, creams, lotions, detergents, clothing, lipstick. She has been seen by her primary care physician about this and is in the process of being referred to an experience specialist for further evaluation. She reports that typically her symptoms resolve with glucocorticoid use. She has no other complaints at this time. PFSH Past Medical History Hx Anticoagulant Therapy: No Anemia: Yes Autoimmune Disease: No Blood Disorders: Yes (anemia - receives blood at oncology center occoasionally ) Anxiety: No Depression: No Cancer: No Cardiovascular Problems: Yes (" palpitations" ) Chemotherapy: No Cerebrovascular Accident: No Diabetes: No Diminished Hearing: No Endocrine: No Gastrointestinal Disorders: Yes (hx bleeding ulcers, zulifqar to do endo at of month) Genitourinary: No Headaches: Yes Immune Disorder: No Implanted Vascular Access Dvce: No Musculoskeletal: No Neurologic: Yes (migraines as a teenager) Psychiatric: No Reproductive: No Respiratory: No Immunizations Current: No Migraines: Yes Radiation Therapy: No Ulcer: Yes ?: Not : 4 Para: 4 Tubal Ligation: Yes Past Surgical History Abdominal Surgery: Yes (GASTRIC BYPASS 03/2012) Section: Yes Cholecystectomy: Yes Gynecologic Surgery: Yes Hysterectomy: No (BTL) Pacemaker: No Other Surgery: Yes (ulcer surg and "rule and wire") Social History Alcohol Use: No Tobacco Use: No Substance Use: No Allergies-Medications (Allergen,Severity, Reaction): Coded Allergies: No Known Allergies (Verified Adverse Reaction, Unknown, 09/09/17) Reported Meds & Prescriptions Reported Meds & Active Scripts Active Prednisone 20 Mg Tab 20 Mg PO BID 5 Days Epipen 2-Rian Inj (Epinephrine) 0.3 Mg/0.3 Ml Pfpen 0.3 Mg IM ONCE PRN Review of Systems General / Constitutional: No: Fever, Chills HENT: Positive: Other (positive for lip swelling, scratchy throat) Respiratory: No: Shortness of Breath, Wheezing Skin: No Rash, No Itching Physical Exam Narrative GENERAL: Well-developed well-nourished female in no acute distress SKIN: Warm and dry. HEAD: Atraumatic. Normocephalic. EYES: Pupils equal and round. No scleral icterus. No injection or drainage. ENT: No nasal bleeding or discharge. Mucous membranes pink and moist. Lips appear diffusely mildly edematous. They are tender to palpation. There are no open wounds. There is no peeling of the skin or the mouth mucosa. There is no swelling of the tongue, uvula.Voice is not hoarse or muffled, no stridor or drooling. NECK: Trachea midline. No JVD. CARDIOVASCULAR: Regular rate and rhythm. No murmur appreciated. RESPIRATORY: No accessory muscle use. Clear to auscultation. Breath sounds equal bilaterally. No wheezing. Data Data Last Documented VS Vital Signs Date Time Temp Pulse Resp B/P (MAP) Pulse Ox O2 Delivery O2 Flow Rate FiO2 09/09/17 10:25 98.5 95 14 142/74 (96) 100 Orders Orders Dexamethasone Inj (Decadron Inj) (09/09/17 11:00) Ed Discharge Order (09/09/17 10:50) MDM Medical Decision Making Medical Screen Exam Complete: Yes Emergency Medical Condition: Yes Medical Record Reviewed: Yes Differential Diagnosis Angioedema, angular keleitis, Kevin Freddy syndrome, cellulitis Narrative Course Her history would be suggestive of angioedema of unknown etiology. The patient will be given a dose of Decadron here and discharged with prednisone, recommended calling her primary care physician to expedite the experience specialist referral process. Diagnosis Primary Impression: Angioedema Additional Instructions: Medication as prescribed. Benadryl over 6 hours as needed. Do not drive or drink alcohol when taking Benadryl. Follow-up with your primary care physician as well as experience specialist. Return for any emergent medical conditions. Med/Other Pt SpecificInfo: Prescription(s) given Scripts Prednisone (Prednisone) 20 Mg Tab 20 MG PO BID for 5 Days, #10 TAB 0 Refills Prov: Max Khan MD 09/09/17 Disposition: 01 DISCHARGE HOME Condition: Stable Kulwant Mcclendon Sep 09, 2017 10:56
[2017-09-09] MEDS ORDERED: DEXAMETHASONE SOD PHOS 4 MG/ML VIAL IM ONE (11:00)
== END 2017-09-09 11:24 | disposition home or self-care (01) ==
LOC: NEPK 10:22
DX: T78.3XXA Angioneurotic edema, initial encounter (principal); D64.9 Anemia, unspecified; Z98.84 Bariatric surgery status
CPT/HCPCS: 96372; 99283; J1100

== ENCOUNTER → 2017-10-07 | Outpatient (CLI) | payer OTHER ==
[~2017-10-07] MED LIST changes: +DIPH25TA2 PO; +MEDR4PAK PO; -MULTTAB67 PO; -RANI150T PO; -ZOFR4TAB3 SL
[2017-10-07 08:51] LABS: AUTOMATED NEUTROPHIL # 1.9 TH/MM3 (1.8-7.7); BASOPHIL % 0.5 % (0.0-2.0); EOSINOPHIL % 0.7 % (0.0-4.0); HEMATOCRIT 39.8 % (35.0-46.0); HEMOGLOBIN 13.1 GM/DL (11.6-15.3); LYMPH % 45.1 % (9.0-44.0); LYMPHOCYTE # 1.9 TH/MM3 (1.0-4.8); MEAN CELL VOLUME 92.2 FL (80.0-100.0); MEAN CORPUSCULAR HEMOGLOBIN 30.4 PG (27.0-34.0); MEAN PLATELET VOLUME 10.1 FL (7.0-11.0); MONO % 8.4 % (0.0-8.0); MONOCYTE # 0.3 TH/MM3 (0-0.9); NEUT % 45.3 % (16.0-70.0); PLATELET COUNT 176 TH/MM3 (150-450); RED BLOOD COUNT 4.31 MIL/MM3 (4.00-5.30); RED CELL DISTRIBUTION WIDTH 12.9 % (11.6-17.2); WHITE BLOOD COUNT 4.1 TH/MM3 (4.0-11.0)
[2017-10-07 09:16] LABS: AST (GOT) 24 U/L (15-37); BICARBONATE 25.7 MEQ/L (21.0-32.0); BLOOD UREA NITROGEN 15 MG/DL (7-18); CALCIUM 8.7 MG/DL (8.5-10.1); CHLORIDE 105 MEQ/L (98-107); CHOLESTEROL 164 MG/DL (120-200); CREATININE 0.78 MG/DL (0.50-1.00); GLOMERULAR FILTRATION RATE 102 ML/MIN (>89); GLUCOSE,FASTING 82 MG/DL (74-99); SODIUM (NA) 139 MEQ/L (136-145); TRIGLYCERIDES 98 MG/DL (42-150)
[2017-10-07 09:44] LABS: % SATURATION IRON PROFILE 10.3 % (20-50); ALKALINE PHOSPHATASE 79 U/L (45-117); ALT (GPT) 28 U/L (10-53); CHOLESTEROL/ HDL RATIO 2.36 RATIO; FERRITIN 112 NG/ML (8-252); FOLATE 18.9 NG/ML (3.1-17.5); HDL CHOLESTEROL 69.3 MG/DL (40.0-60.0); IRON (FE) 45 MCG/DL (50-170); LDL CHOLESTEROL 75 MG/DL (0-99); TOTAL BILIRUBIN ADULT 0.4 MG/DL (0.2-1.0); TOTAL IRON BINDING CAPACITY 435 MCG/DL (250-450); TOTAL PROTEIN 7.8 GM/DL (6.4-8.2)
== END ==
LOC: CLAB 07:54
PROVIDERS: ATTEND Family Medicine
DX: R74.8 Abnormal levels of other serum enzymes (principal); D64.9 Anemia, unspecified; E53.8 Deficiency of other specified B group vitamins; E78.89 Other lipoprotein metabolism disorders; N25.81 Secondary hyperparathyroidism of renal origin; E55.9 Vitamin D deficiency, unspecified; E66.01 Morbid (severe) obesity due to excess calories; Z86.39 Personal history of other endocrine, nutritional and metabolic disease
CPT/HCPCS: 36415; 80053; 80061; 82306; 82533; 82607; 82728; 82746; 83540; 83550; 83735; 83970; 84100; 84425; 84443; 84590; 85025

== ENCOUNTER 2017-10-10 07:00 | Emergency (ER) | payer OTHER ==
[~2017-10-10] VITALS: Ht 149.9 cm; Wt 90.0 kg
[~2017-10-10 07:00] MED LIST changes: -DIPH25TA2 PO; -MEDR4PAK PO
[2017-10-10 07:18] VITALS: BP 135/92; PULSE 96; RESP 16; TEMP 98.5; O2SAT 97
[2017-10-10 08:21] VITALS: O2SAT 100
--- NOTE | 2017-10-10 08:22 | PD ---
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 She had taken Benadryl at 2 AM and there is some improvement of the eyelid swelling but she states is not going away. She denies any shortness of breath but did complain of some discomfort in her throat this morning, she states is not as bad now. She states that she has had several episodes of these allergic reactions but they do not yet know of a obvious allergen. She states that she does not use any creams or soaps on her face. She uses no makeup. She denies any new medications or food intake. Modifying Factors: None Associated Signs & Symptoms: Eyelid swelling, allergic reaction Risk Factors: Previous problems with allergic reactions PFSH Past Medical History Hx Anticoagulant Therapy: No Anemia: Yes Autoimmune Disease: No Blood Disorders: Yes (anemia - receives blood at oncology center occoasionally ) Anxiety: No Depression: No Cancer: No Cardiovascular Problems: Yes (" palpitations" ) Chemotherapy: No Cerebrovascular Accident: No Diabetes: No Diminished Hearing: No Endocrine: No Gastrointestinal Disorders: Yes (hx bleeding ulcers, zulifqar to do endo at of month) Genitourinary: No Headaches: Yes Immune Disorder: No Implanted Vascular Access Dvce: No Musculoskeletal: No Neurologic: Yes (migraines as a teenager) Psychiatric: No Reproductive: No Respiratory: No Immunizations Current: No Migraines: Yes Radiation Therapy: No Ulcer: Yes : 4 Para: 4 Tubal Ligation: Yes Past Surgical History Abdominal Surgery: Yes (GASTRIC BYPASS 03/2012) Section: Yes Cholecystectomy: Yes Gynecologic Surgery: Yes Hysterectomy: No (BTL) Pacemaker: No Other Surgery: Yes (ulcer surg and "rule and wire") Social History Alcohol Use: No Tobacco Use: No Substance Use: No Allergies-Medications (Allergen,Severity, Reaction): Coded Allergies: No Known Allergies (Verified Adverse Reaction, Unknown, 10/10/17) Reported Meds & Prescriptions Reported Meds & Active Scripts Active Prednisone 20 Mg Tab 20 Mg PO BID 5 Days Epipen 2-Rian Inj (Epinephrine) 0.3 Mg/0.3 Ml Pfpen 0.3 Mg IM ONCE PRN Review of Systems Except as stated in HPI: all other systems reviewed are Neg Physical Exam Narrative GENERAL: Well-developed young -[place] female patient currently in mild distress. Awake and oriented 3. SKIN: Focused skin assessment warm/dry. HEAD: Atraumatic. Normocephalic. EYES: Pupils equal and round. No scleral icterus. No injection or drainage. Notable eyelid edema. ENT: Mucosa pink and moist. No erythema or exudates. No uvular edema. No uvular , palatal, or tonsillar deviation. Airway patent. Nasal turbinates appear normal without nasal blood, purulent drainage. NECK: Trachea midline. No JVD. CARDIOVASCULAR: Regular rate and rhythm. No murmur appreciated. RESPIRATORY: No accessory muscle use. Clear to auscultation. Breath sounds equal bilaterally. GASTROINTESTINAL: Abdomen soft, non-tender, nondistended. Hepatic and splenic margins not palpable. MUSCULOSKELETAL: No obvious deformities. No clubbing. No cyanosis. No edema. NEUROLOGICAL: Awake and alert. No obvious cranial nerve deficits. Motor grossly within normal limits. Normal speech. PSYCHIATRIC: Appropriate mood and affect; insight and judgment normal. Data Data Last Documented VS Vital Signs Date Time Temp Pulse Resp B/P (MAP) Pulse Ox O2 Delivery O2 Flow Rate FiO2 10/10/17 08:21 100 10/10/17 08:21 Room Air 10/10/17 07:18 98.5 96 16 135/92 (106) Orders Orders Diphenhydramine Inj (Benadryl Inj) (10/10/17 08:30) Methylprednisolone So Succ Inj (Solumedr (10/10/17 08:30) Famotidine Inj (Pepcid Inj) (10/10/17 08:30) Sodium Chloride 0.9% Flush (Ns Flush) (10/10/17 08:30) Methylprednisolone So Succ Inj (Solumedr (10/10/17 09:00) Diphenhydramine Inj (Benadryl Inj) (10/10/17 09:00) Ed Discharge Order (10/10/17 10:10) [facility] Medical Decision Making Medical Screen Exam Complete: Yes Emergency Medical Condition: Yes Medical Record Reviewed: Yes Differential Diagnosis Allergic reaction versus angioedema versus contact dermatitis Narrative Course Patient was given Benadryl and Solu-Medrol in the ER. She was observed in the ER for several hours, and there was no progression of symptoms. Her eyelid edema looked improved. At this point, vital signs are stable and patient states she wants to go back to work. 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 However, she should return for any progression of symptoms, shortness of breath, throat swelling, or new symptoms as needed. The plan has been discussed with her and she states understanding. Diagnosis Primary Impression: Allergic reaction Med/Other Pt SpecificInfo: Prescription(s) given Scripts Diphenhydramine (Diphenhydramine) 25 Mg Tab 25 MG PO Q6H Y for ALLERGIES, #20 TAB 0 Refills Prov: Kodak Morrison MD 10/10/17 Methylprednisolone Dosepak (Medrol Dosepak) 4 Mg Dspk 4 MG PO DIRECTED, #1 DSPK 0 Refills Per Pharmacist direction Prov: Kodak Morrison MD 10/10/17 Epinephrine Inj (Epipen 2-Rian Inj) 0.3 Mg/0.3 Ml Pfpen 0.3 MG IM ONCE Y for ALLERGIC REACTION, #1 PACK 0 Refills Prov: Kodak Morrison MD 10/10/17 Disposition: 01 DISCHARGE HOME Condition: Stable Kodak Morrison MD Oct 10, 2017 08:22
[2017-10-10] MEDS ORDERED: FAMOTIDINE 20 MG/2 ML VIAL IV PUSH ONE (08:30)
[2017-10-10] MEDS ORDERED: methylPREDNISolone SOD SUCC 125 MG/2 ML VIAL IV PUSH ONE (08:30)
[2017-10-10] MEDS ORDERED: SODIUM CHLORIDE 0.9% FLUSH 10 ML FLUSH IV FLUSH PRN (08:30)
[2017-10-10] MEDS ORDERED: diphenhydrAMINE HCL 50 MG/ML VIAL IVP ONE (08:30)
[2017-10-10] MEDS ORDERED: diphenhydrAMINE HCL 50 MG/ML VIAL IM ONE (09:00)
[2017-10-10] MEDS ORDERED: methylPREDNISolone SOD SUCC 125 MG/2 ML VIAL IM ONE (09:00)
[2017-10-10] MEDS ORDERED: EPIP0.3I IM (10:12)
[2017-10-10] MEDS ORDERED: MEDR4PAK PO (10:12)
[2017-10-10] MEDS ORDERED: DIPH25TA2 PO (10:12)
== END 2017-10-10 10:27 | disposition home or self-care (01) ==
LOC: NEPC 07:00
DX: T78.40XA Allergy, unspecified, initial encounter (principal); D64.9 Anemia, unspecified
CPT/HCPCS: 96372; 96374; 96375; 99284; J1200; J2930